=== PATIENT | female | born 2000 | race Caucasian/White ===

== ENCOUNTER 2020-05-26 18:59 | Inpatient (IN) ==
[2020-05-26] MEDS ORDERED: METHYLERGONOVINE 0.2 MG/1 ML AMP ONE (19:13)
[2020-05-26] MEDS ORDERED: miSOPROStoL 200 MCG TABLET ONE (19:13)
[2020-05-26] MEDS ORDERED: TRANEXAMIC ACID 1,000 MG/10 ML VIAL ONE (19:13)
[2020-05-26] MEDS ORDERED: OXYTOCIN/LR 20 UNIT/1,000 ML BAG IV ONE ×2 (19:13→19:31)
[2020-05-26] MEDS ORDERED: CARBOPROST TROMETHAMINE 250 MCG/ML AMP IM ONE (19:14)
[2020-05-26] MEDS ORDERED: LIDOCAINE 1% 50 ML VIAL ONE (19:14)
[2020-05-26] MEDS ORDERED: LACTATED RINGERS 500 ML IV PRN (19:27)
[2020-05-26] MEDS ORDERED: BUTORPHANOL 2 MG/ML VIAL IV PRN (19:27)
[2020-05-26] MEDS ORDERED: CITRIC ACID/SODIUM CITRATE 30 ML UDCUP ONE (19:27)
[2020-05-26] MEDS ORDERED: FAMOTIDINE 20 MG/2 ML VIAL IV ONE ×2 (19:27→19:31)
[2020-05-26] MEDS ORDERED: MEPERIDINE 50 MG/1 ML VIAL IV PRN (19:27)
[2020-05-26] MEDS ORDERED: ONDANSETRON 4 MG/2 ML VIAL IV PRN ×2 (19:27→22:10)
[2020-05-26] MEDS: LACTATED RINGERS 1,000 ML IV SCH ×2 (19:36→20:16)
[2020-05-26 19:44] LABS: Basophils % 0.2 % (0.0-0.8); Hematocrit 35.7 VOL% (35.7-47.0); Hemoglobin 11.8 GM/DL (12.0-16.0); Immature Granulocytes % 1.7 %; Immature Granulocytes Absolute 0.37 #; Lymphocytes # 1.1 10*3/uL (1.4-4.0); Mean Corpuscular HGB Conc 33.1 GM/DL (32-36); Mean Corpuscular Volume 94.4 FL (87-102); Mean Platelet Volume 9.1 FL (9.6-12.0); Monocytes % 4.4 % (1.7-12.7); Neutrophils % 88.7 % (38.7-73.9); Platelet Count 229 T/CUMM (130-400); Red Blood Count 3.78 MC/CUMM (3.8-5.5); Red Cell Distribution Width 13.8 % (9.3-17.3); White Blood Count 21.8 T/CUMM (4-12)
[2020-05-26] MEDS ORDERED: fentaNYL 2 MCG/ROPIV 0.2% EPID 100 ML EPIDURAL ONE (19:49)
[2020-05-26] MEDS ORDERED: fentaNYL 2 MCG/ROPIV 0.2% EPID 100 ML EPIDURAL SCH (20:00)
[2020-05-26 20:29] LABS: Albumin 3.2 G/DL (3.4-5.0); Bilirubin,Total 1.1 MG/DL (0.2-1.0); Calcium 9.2 MG/DL (8.5-10.1); Osmolality,Calculated 270.8 MOS/KG (273-304); Potassium 3.5 MMOL/L (3.5-5.1); Total Protein 7.7 G/DL (6.4-8.2)
[2020-05-26 20:38] LABS: Lymphocytes 5 % (20-55); Segmented Neutrophils 89 % (50-85); Total Cells Counted 100
[2020-05-26 20:39] LABS: Hypochromasia Slight; Platelet Estimate Normal
[2020-05-26] MEDS ORDERED: ePHEDrine 50 MG/ML VIAL ONE (20:57)
[2020-05-26] MEDS: ePHEDrine 50 MG/ML VIAL IV PRN ×2 (20:58→21:03)
[2020-05-26] MEDS ORDERED: OXYTOCIN/LR 20 UNIT/1,000 ML BAG IV SCH (21:00)
[2020-05-26] MEDS ORDERED: ACETAMINOPHEN 325 MG TABLET PO PRN (22:10)
[2020-05-26] MEDS ORDERED: WITCH HAZEL PADS 100/JAR TOP PRN (22:10)
[2020-05-26] MEDS ORDERED: BISACODYL 10 MG SUPP RECTAL PRN (22:10)
[2020-05-26] MEDS ORDERED: BENZOCAINE 20%/MENTHOL 0.5% SPRAY 56 GM CAN TOP PRN (22:10)
[2020-05-26] MEDS ORDERED: ACETAMINOPHEN/CODEINE 300-30 MG TABLET PO PRN (22:10)
[2020-05-26] MEDS ORDERED: LANOLIN 50% CREAM 0.3 OZ TUBE TOP PRN (22:10)
[2020-05-26] MEDS ORDERED: HYDROCORTISONE 2.5% RECTAL CREAM 30 GM TUBE TOP PRN (22:10)
[2020-05-26 22:17] LABS: Cord Arterial Blood HCO3 19.6 MMOL/L
[2020-05-26 22:20] LABS: Cord Venous Blood HCO3 18.5 MMOL/L; Cord Venous Blood PCO2 34.5 MMHG; Cord Venous Blood PO2 37.1
[2020-05-27 06:23] LABS: Basophils % 0.2 % (0.0-0.8); Hematocrit 30.4 VOL% (35.7-47.0); Hemoglobin 9.9 GM/DL (12.0-16.0); Immature Granulocytes % 1.6 %; Immature Granulocytes Absolute 0.33 #; Lymphocytes # 1.4 10*3/uL (1.4-4.0); Lymphocytes % 6.9 % (21.3-54.2); Mean Corpuscular HGB Conc 32.6 GM/DL (32-36); Mean Platelet Volume 9.3 FL (9.6-12.0); Monocytes % 8.4 % (1.7-12.7); Neutrophils % 82.9 % (38.7-73.9); Platelet Count 191 T/CUMM (130-400); Red Cell Distribution Width 13.5 % (9.3-17.3); White Blood Count 20.8 T/CUMM (4-12)
[2020-05-27 06:57] LABS: Hypochromasia 1+; Lymphocytes 10 % (20-55); Microcytosis 1+; Platelet Estimate Adequate; Segmented Neutrophils 82 % (50-85); Total Cells Counted 100
[2020-05-27] MEDS: DOCUSATE SODIUM 100 MG CAPSULE PO SCH ×2 (08:58→21:20)
[2020-05-27] MEDS: FERROUS SULFATE 325 MG TABLET PO SCH (08:58)
[2020-05-27] MEDS: IBUPROFEN 800 MG TABLET PO PRN ×2 (08:58→15:54)
[2020-05-27] MEDS: MULTIVITAMIN (PRENATAL) TABLET PO SCH (09:00)
[2020-05-28] MEDS: IBUPROFEN 800 MG TABLET PO PRN (06:32)
[2020-05-28 07:42] VITALS: BP 82/49
[2020-05-28 09:03] LABS: Basophils % 0.2 % (0.0-0.8); Eosinophils # 0.1 10*3/uL (0.0-0.87); Eosinophils % 0.3 % (0.00-10.9); Hematocrit 35.2 VOL% (35.7-47.0); Hemoglobin 11.3 GM/DL (12.0-16.0); Immature Granulocytes % 2.4 %; Immature Granulocytes Absolute 0.36 #; Lymphocytes # 1.7 10*3/uL (1.4-4.0); Lymphocytes % 11.2 % (21.3-54.2); Mean Corpuscular HGB Conc 32.1 GM/DL (32-36); Mean Platelet Volume 8.9 FL (9.6-12.0); Monocytes % 6.2 % (1.7-12.7); Neutrophils % 79.7 % (38.7-73.9); Platelet Count 195 T/CUMM (130-400); Red Blood Count 3.63 MC/CUMM (3.8-5.5); Red Cell Distribution Width 13.9 % (9.3-17.3); White Blood Count 15.1 T/CUMM (4-12)
[2020-05-28] MEDS: FERROUS SULFATE 325 MG TABLET PO SCH (09:09)
[2020-05-28] MEDS: DOCUSATE SODIUM 100 MG CAPSULE PO SCH (09:09)
[2020-05-28] MEDS: MULTIVITAMIN (PRENATAL) TABLET PO SCH (09:09)
[2020-05-28 09:33] LABS: Alanine Aminotransferase 14 U/L (13-56); Albumin 2.6 G/DL (3.4-5.0); Alkaline Phosphatase 105 U/L (45-117); Amylase 47 U/L (25-115); Aspartate Amino Transferase 22 U/L (0-37); Bilirubin,Total < 0.39 MG/DL (0.2-1.0); Blood Urea Nitrogen 8 MG/DL (7-18); Calcium 8.7 MG/DL (8.5-10.1); Carbon Dioxide 24 MMOL/L (21-32); Estimated Glom Filtration Rate 137 ML/MIN; Glucose 83 MG/DL (74-106); Osmolality,Calculated 273.5 MOS/KG (273-304); Potassium 3.9 MMOL/L (3.5-5.1); Sodium 139 MMOL/L (136-145); Total Protein 6.7 G/DL (6.4-8.2)
== END 2020-05-28 11:50 | disposition home or self-care (01) | DRG 807 ==
LOC: N.LDOUT 18:59 → N.LD 19:00 → N.OB 05-27 04:42
PROVIDERS: ADMIT Obstetrics & Gynecology; ATTEND Obstetrics & Gynecology